=== PATIENT | male | born 1975 | race African-American/Black ===

== ENCOUNTER 2023-01-20 08:27 | Day surgery (SDC) | payer MEDICARE, MEDICAID ==
[~2023-01-20] VITALS: Ht 175.3 cm; Wt 70.8 kg
[~2023-01-20 08:27] MED LIST: AMOXICILLIN500 MG PO; PRILOSEC20 MG PO; PROAIR HFA IN; PROVENTIL0.083 % IN; SINGULAIR10 MG PO; [UNRECOGNIZED DRUG - OTHER] PO
[2023-01-20 11:26] VITALS: BP 145/97
== END 2023-01-20 11:40 | disposition home or self-care (01) ==
LOC: ENDO 08:27
PROVIDERS: ATTEND Surgery
PROC: 0DBN8ZX Excision of Sigmoid Colon, Via Natural or Artificial Opening Endoscopic, Diagnostic (ICD-10-PCS; principal; 2023-01-20)
DX: Z12.11 Encounter for screening for malignant neoplasm of colon (principal); K63.5 Polyp of colon; K64.8 Other hemorrhoids; J45.909 Unspecified asthma, uncomplicated; Z21 Asymptomatic human immunodeficiency virus [HIV] infection status; Z80.0 Family history of malignant neoplasm of digestive organs